=== PATIENT | male | born 1965 | race Asian ===

== ENCOUNTER 2022-03-04 19:39 | Emergency (ER) | payer MEDICAID ==
[~2022-03-04] VITALS: Ht 170.2 cm; Wt 90.9 kg
[~2022-03-04 19:39] MED LIST: ACET-2247 PO; CEFA2PIG IV; INSLAN SQ; OXYC-490 PO
[2022-03-04 20:16] VITALS: BP 111/88
[2022-03-04] MEDS ORDERED: DICL100G51 TP (22:06)
[2022-03-04] MEDS ORDERED: KETOROLAC TROMETHAMINE 30 MG/ML VIAL IM ONE (22:45)
== END 2022-03-04 23:15 | disposition home or self-care (01) ==
LOC: EMS 19:46
DX: S80.02XA Contusion of left knee, initial encounter (principal); S80.01XA Contusion of right knee, initial encounter; S50.02XA Contusion of left elbow, initial encounter; M25.551 Pain in right hip; E11.9 Type 2 diabetes mellitus without complications; W01.0XXA Fall on same level from slipping, tripping and stumbling without subsequent striking against object, initial encounter; Y93.89 Activity, other specified; Y92.89 Other specified places as the place of occurrence of the external cause; Y99.8 Other external cause status
CPT/HCPCS: 99284; 73070; 73502; 73560 ×2; 73620; 82948; 96372; J1885

== ENCOUNTER 2022-09-30 20:46 | Emergency (ER) | payer MEDICAID ==
[~2022-09-30] VITALS: Ht 170.2 cm; Wt 100.0 kg
[~2022-09-30 20:46] MED LIST changes: +DICL100G51 TP
[2022-09-30 23:40] VITALS: BP 147/78
[2022-09-30 23:51] LABS: BASOPHILS % (AUTO) 1.2 % (0.0-2.0); EOSINOPHILS % (AUTO) 5.4 % (1.0-6.0); LYMPHOCYTES # (AUTO) 1.4 K/uL (1.0-4.8); LYMPHOCYTES % (AUTO) 17.4 % (22.0-44.0); MEAN CORPUSCULAR HEMOGLOBIN 30.3 pg (26.0-34.0); MEAN CORPUSCULAR HGB CONC 33.4 G/dL (31.0-37.0); MEAN CORPUSCULAR VOLUME 91 fL (80-100); MONOCYTES # (AUTO) 0.5 K/uL (0.1-1.0); MONOCYTES % (AUTO) 5.8 % (2.0-9.0); NEUTROPHILS # (AUTO) 5.6 K/uL (1.8-7.7); NEUTROPHILS % (AUTO) 70.2 % (40.0-70.0); PLATELET COUNT (AUTO) 310 K/uL (150-450); RED BLOOD CELL COUNT(AUTO) 4.63 MIL/uL (4.50-5.90)
[2022-09-30 23:52] LABS: GLUCOSE,POINT OF CARE 99 MG/DL (70-110)
[2022-10-01 00:01] LABS: ANION GAP 6 mmol/L (8-16); CALCIUM, TOTAL 9.4 mg/dL (8.8-10.5); CARBON DIOXIDE 30 mmol/L (22-29); CHLORIDE 99 mmol/L (98-107); CREATININE 0.78 mg/dL (0.60-1.30); GLOMERULAR FILTR. RATE CALC > 60 mL/min (>60); GLUCOSE,RANDOM 103 mg/dL (70-110); POTASSIUM 3.6 mmol/L (3.5-5.1); SODIUM SERUM 135 mmol/L (136-145); UREA NITROGEN, BLOOD 8 mg/dL (7-18)
[2022-10-01 00:07] LABS: ALANINE AMINOTRANSFERASE 22 U/L (12-78); ALBUMIN 4.2 g/dL (3.4-5.0); ALKALINE PHOSPHATASE 77 U/L (46-116); ASPARTATE AMINOTRANSFERASE 18 U/L (15-37); BILIRUBIN,TOTAL 0.3 mg/dL (0.1-1.0); TOTAL PROTEIN, SERUM 8.3 g/dL (6.4-8.2)
[2022-10-01] MEDS ORDERED: BACITRACIN 0.9 GM PACKET OINTMENT TP ONE (00:15)
[2022-10-01] MEDS ORDERED: OLANZapine 5 MG TABLET PO ONE (00:15)
[2022-10-01] MEDS ORDERED: CEPH-558 PO (00:56)
== END 2022-10-01 00:58 | disposition home or self-care (01) ==
LOC: EMS 20:46
DX: F20.9 Schizophrenia, unspecified (principal); E11.9 Type 2 diabetes mellitus without complications
CPT/HCPCS: 99284; 80053; 82962; 85025; G0480